=== PATIENT | male | born 1985 | race Caucasian/White ===

== ENCOUNTER 2020-07-05 18:53 | Emergency (ER) | payer OTHER, SELFPAY ==
--- NOTE | ~2020-07-05 | CT_ITS ---
EXAMINATION: CT brain wo con DATE: 07/05/2020 19:19 INDICATION: Fall, striking forehead. Loss of consciousness. TECHNIQUE: Computed tomography (CT) of the head was performed without intravenous contrast. The mA wa s adjusted according to patient size. Iterative reconstruction technique was employed. Exam dose: 60 5.33 mGy-cm total exam DLP. COMPARISON: None FINDINGS: There are nondepressed left and right frontal skull fractures. There is mild right frontal subdural hematoma, measuring up to approximately 6 mm maximal depth. No midline shift or mass effects . No intracranial mass lesion or hemorrhage, midline shift or mass effects is noted otherwise. Ventricu lar size is normal. There is focal opacification of left ethmoid air cells. The included paranasal sinuses are otherwise normally developed and aerated. The mastoid air cells are normally developed and aerated. No bone destruction of the cranial vault is noted. IMPRESSION: Left frontal subdural hematoma and left and right frontal nondepressed skull fractures Dr. Starr confirmed the findings to emergency room physician on 07/07/2020 at 1925 hours Reviewed, dictated and finalized at [facility]. Reviewed, dictated and finalized at [facility]. IMPRESSION: Left frontal subdural hematoma and left and right frontal nondepre ssed skull fractures Dr. Starr confirmed the findings to emergency room physician on 07/07/2020 at 192 5 hours
--- NOTE | ~2020-07-05 | XR_ITS ---
XR chest 1V portable DATE: 07/05/2020 19:34 INDICATION: Fall. Loss of consciousness first 90 seconds TECHNIQUE: Portable AP chest on 07/05/2020 at 1935 hours COMPARISON: None FINDINGS: Normal heart size. No hilar or mediastinal enlargement. No pulmonary infiltrate or consolid ation, pleural effusion or pulmonary vascular congestion or pneumothorax. IMPRESSION: No active cardiopulmonary disease Reviewed, dictated and finalized at [facility].
--- NOTE | ~2020-07-05 | CT_ITS ---
EXAMINATION: CT cervical spine wo con DATE: 07/05/2020 19:42 INDICATION: Head and neck injury TECHNIQUE: Computed tomography (CT) of the cervical spine was performed without intravenous contrast. Automated exposure control and iterative reconstruction technique were employed. Exam dose: 402.01 mGy-cm total exam DLP. COMPARISON: None FINDINGS: There is straightening of the cervical spine. No fracture or dislocation or locked facet. C 1 and C2 are normally aligned and the odontoid process is intact. No prevertebral soft tissue swellin g. Cervical interspaces are preserved.. IMPRESSION: Straightening of the cervical spine Reviewed, dictated and finalized at [facility]. Reviewed, dictated and finalized at [facility].
[2020-07-05 18:54] VITALS: BP 138/87; PULSE 107; RESP 18; TEMP 36.8; O2SAT 96
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
[2020-07-05 19:34] LABS: Basophils Percent Auto 0.5 % (0.2-1.2); Eosinophils Absolute Auto 0.2 K/mm3 (0-0.3); Eosinophils Percent Auto 2.4 % (0-4.4); Hematocrit 41.6 % (42.0-52.0); Hemoglobin 14.7 g/dL (14.0-18.0); Immature Granulocyte Absolute 0.02 K/mm3 (0.00-0.031); Immature Granulocyte Percent A 0.3 % (0-0.5); Lymphocytes Absolute Auto 2.45 K/mm3 (0.9-3.2); Lymphocytes Percent Auto 39.5 % (18.3-44.2); Mean Corpuscular HGB Conc 35.3 g/dl (32-36); Mean Corpuscular Hemoglobin 30.1 pg (26-34); Mean Corpuscular Volume 85.1 fl (80-100); Mean Platelet Volume 9.8 fl (7.4-10.4); Monocytes Absolute Auto 0.5 K/mm3 (0.1-0.6); Monocytes Percent Auto 8.1 % (2.6-8.5); Neutrophils Absolute Auto 3.1 K/mm3 (1.3-6.7); Neutrophils Percent Auto 49.2 % (45.5-73.1); Platelet Count Result 252 k/mm3 (150-375); Red Blood Count 4.89 M/mm3 (4.6-6.20); Red Cell Distribution Width 11.5 % (11.5-14.5); White Blood Count 6.2 K/mm3 (4.5-10.0)
[2020-07-05 19:43] LABS: Ethanol 156 mg/dL (<10)
[2020-07-05 19:43] LABS: Prothrombin Time 12.9 Seconds (11.1-14.7)
[2020-07-05 19:44] LABS: Anion Gap 13 mmol/L (8-16); Blood Urea Nitrogen 15 mg/dL (9-20); Carbon Dioxide 22 mmol/L (22-30); Chloride 103 mmol/L (98-107); Estimated CRCL calculation 114 ml/min; Estimated Glomerular Filt Rate > 60; Glucose 110 mg/dL (75-110); Partial Thromboplastin Time 27.6 SECONDS (22.3-36.8); Potassium 3.7 mmol/L (3.4-5.0); Sodium 138 mmol/L (137-145)
[2020-07-05] MEDS: ONDANSETRON INJ 4 MG/2 ML VIAL IV PUSH (19:46)
[2020-07-05] MEDS: SODIUM CHLORIDE 0.9% IV 1,000 ML 999 ML IV CONT (19:46)
[2020-07-05] MEDS: TETANUS,DIPHTHERIA,AC PERTUSSIS ADULT (0.5 ML) BOOSTRIX IM (19:49)
[2020-07-05 19:50] VITALS: BP 129/86; PULSE 88; RESP 20; O2SAT 98
[2020-07-05 20:21] VITALS: BP 148/89; PULSE 88; RESP 17; O2SAT 97
[2020-07-05] MEDS: levETIRAcetam 500MG/NACL 100ML 500 MG/100 ML BAG 400 MG IVPB (20:22)
--- NOTE | 2020-07-05 20:50 | PC.NURSE ---
called [facility] to transport patient. declined
[2020-07-05 21:04] VITALS: BP 147/88; PULSE 87; RESP 16; O2SAT 98
--- NOTE | 2020-07-05 21:24 | PC.NURSE ---
[id number] Called [facility] to request transport. [facility] returned call at [phone] and declined
--- NOTE | 2020-07-05 21:27 | PC.NURSE ---
called [facility] to request transport. [facility] declined -
--- NOTE | 2020-07-05 21:28 | PC.NURSE ---
called [facility] at 2120 to request transport. ETA [phone]
[2020-07-05 21:51] VITALS: BP 136/82; PULSE 90; RESP 21; O2SAT 97
--- NOTE | 2020-07-05 22:00 | ECG_ITS ---
Measurements Intervals [place] Rate: 81 P: 42 SC: 150 QRS: 50 QRSD: 126 T: 61 QT: 356 QTc: 415 Interpretive Statements SINUS RHYTHM RIGHT BUNDLE BRANCH BLOCK ABNORMAL ECG Electronically Signed On 07-06-2020 6:58:38 CDT by John Quintana D.O.
[2020-07-05 22:31] VITALS: BP 127/71; PULSE 91; RESP 17; O2SAT 97
== END 2020-07-05 22:35 | disposition short-term general hospital (02) ==
LOC: ANHED 19:35
PROVIDERS: Emergency Provider Emergency Medicine
DX: S06.5X1A Traumatic subdural hemorrhage with loss of consciousness of 30 minutes or less, initial encounter (principal); S02.0XXA Fracture of vault of skull, initial encounter for closed fracture; V18.4XXA Pedal cycle driver injured in noncollision transport accident in traffic accident, initial encounter; Y93.55 Activity, bike riding; Z23 Encounter for immunization
CPT/HCPCS: 36415; 70450; 71045; 72125; 80048; 80307; 85025; 85610; 85730; 90471; 90715; 93005; 96374; 96375; 99285; J0131; J1953; J2405; J7030